=== PATIENT | female | born 1975 | race Two or more races ===

== ENCOUNTER 2024-04-01 20:47 | Emergency (ER) | payer SELFPAY ==
[~2024-04-01] VITALS: Ht 165.1 cm; Wt 100.0 kg
[2024-04-01] MEDS: ONDANSETRON HCL 4 MG/2 ML VIAL IV ONE (21:15)
[2024-04-01] MEDS: MORPHINE SULFATE 4 MG/ML SYR/VIAL IV ONE (21:15)
[2024-04-01] MEDS: METOPROLOL TARTRATE 25 MG TAB PO ONE (21:15)
[2024-04-01 21:16] LABS: Basophils # (auto) 0 10 ^3/uL (0-0.2); Basophils % (auto) 0.5 % (0.0-2.0); Eosinophils # (auto) 0 10 ^3/uL (0-0.8); Eosinophils % (auto) 0.5 % (0.0-7.0); Hematocrit 36.3 % (36.0-46.0); Hemoglobin 12.7 g/dL (12.2-16.2); Lymphocytes # (auto) 3.6 10 ^3/uL (0.4-5.4); Lymphocytes % (auto) 35.2 % (10.0-50.0); Mean Corpuscular Hemoglobin 29.3 pg (28.0-32.0); Monocytes # (auto) 0.8 10 ^3/uL (0-1.3); Monocytes % (auto) 7.6 % (0.0-12.0); Neutrophils # (auto) 5.7 10 ^3/uL (1.6-8.6); Neutrophils % (auto) 56.2 % (37.0-80.0); Red Blood Cells 4.32 10^6/uL (4.0-5.20); Red Cell Distribution Width 14.5 % (11.8-14.3); White Blood Cell 10.1 10^3/uL (4.4-10.8)
[2024-04-01 21:33] LABS: Alanine Aminotransferase 22 U/L (7-40); Albumin 4.3 g/dL (3.2-4.8); Alkaline Phosphatase 121 U/L (46-116); Anion Gap 9 (5-15); Aspartate Aminotransferase 15 U/L (13-40); BUN/Creatinine Ratio 17.6 (10.0-20.0); Blood Urea Nitrogen 9 mg/dL (9-23); Calcium 9.5 mg/dL (8.5-10.1); Carbon Dioxide 26 mmol/L (20-30); Chloride 105 mmol/L (98-107); Glucose 119 mg/dL (74-106); Magnesium 1.7 mg/dL (1.6-2.6); Potassium 3.7 mmol/L (3.5-5.1); Sodium 140 mmol/L (136-145); Total Protein 6.7 g/dL (5.7-8.2)
[2024-04-01 21:38] LABS: Bilirubin, Total 0.4 mg/dL (0.2-1.0)
[2024-04-01 21:51] LABS: INR 1.06 (0.9-1.15); Partial Thromboplastin Time 28.2 SEC (24.5-34.5); Prothrombin Time 11.2 sec (9.3-11.8)
[2024-04-02] VITALS: TEMP 97.8
[2024-04-02] MEDS: KETOROLAC TROMETH 60MG/2ML VIAL IM ONE (00:03)
[2024-04-02] MEDS: ASPirin 81 mg TAB PO ONE (00:04)
[2024-04-02] MEDS: NITROGLYCERIN 0.4 MG SL TAB SL ONE (00:04)
[2024-04-02 01:55] VITALS: BP 121/74; PULSE 75; RESP 17; O2SAT 99
== END 2024-04-02 01:56 | disposition home or self-care (01) ==
LOC: ER 20:47
DX: E05.80 Other thyrotoxicosis without thyrotoxic crisis or storm (principal); R07.89 Other chest pain
CPT/HCPCS: 36415; 71045; 80053; 83735; 83880; 84443; 84484; 85025; 85379; 85610; 85730; 93005; 96372; 99285; J1885